=== PATIENT | male | born 1975 | race American Indian/Alaskan Native ===

== ENCOUNTER 2018-11-29 10:23 | Emergency (ER) | payer OTHER ==
[2018-11-29 10:32] VITALS: RESP 18; TEMP 98.6
--- NOTE | 2018-11-29 10:55 | ED PDOC ---
Arrival/HPI - General Chief Complaint: Palpitations Time Seen by Provider: 11/29/18 10:28 Historian: Patient - History of Present Illness Narrative History of Present Illness (Text): 11/29/18 10:55 43 year old male, whose past medical history includes diabetes, hypertension, A- fib s/p ablation s/p gastric sleeve, presents to the emergency department complaining of shortness of breath for the past 2 days. Patient reports shortn ess of breath and elevated heart rate on exertion, but symptoms resolve when he sits down. He reports he has not had any symptoms regarding his A-fib for the past year. He called Dr. Do who told patient to go to the ER for evaluation. Patient reports he was taken off Xarelto and is not currently on any blood thinners. Patient denies any fevers, chills, chest pain, abdominal pain, nausea, vomiting, diarrhea, back pain, neck pain, urinary symptoms, headache, dizziness, or any other complaint. Past Medical History - Provider Review Nursing Documentation Reviewed: Yes - Cardiac Hx Atrial Fibrillation: Yes Hx Hypertension: Yes - Endocrine/Metabolic Hx Diabetes Mellitus Type 2: Yes - Psychiatric Hx Substance Use: No Family/Social History - Physician Review Nursing Documentation Reviewed: Yes Family/Social History: No Known Family HX Smoking Status: Light Smoker < 10 Cigarettes Daily Hx Alcohol Use: Yes Frequency of alcohol use: Socially Hx Substance Use: No Allergies/Home Meds Allergies/Adverse Reactions: Allergies No Known Allergies Allergy (Verified 11/29/18 10:32) Home Medications: Home Meds Medication Instructions Recorded Confirmed Metoprolol Succinate [Toprol Xl] 25 mg PO DAILY 11/29/18 11/29/18 amLODIPine [Norvasc] 5 mg PO DAILY 11/29/18 11/29/18 metFORMIN [glucOPHAGE] 500 mg PO BID 11/29/18 11/29/18 Review of Systems - Physician Review All systems were reviewed & negative as marked: Yes - Review of Systems Constitutional: absent: Fevers Cardiovascular: absent: Chest Pain Physical Exam - Physical Exam Narrative Physical Exam (Text): Constitutional: No acute distress. Head: Normocephalic. Atraumatic. Eyes: PERRL. ENT: Moist mucous membranes. Neck: Supple. Cardiovascular: Regular rate. Chest: No tenderness. Respiratory: Clear to auscultation bilaterally. GI: Soft. Nontender. Nondistended. Back: No CVA tenderness. Musculoskeletal: No tenderness or swelling of extremities. Skin: No rash. Neurologic: Alert, no focal deficit. Vital Signs Reviewed: Yes Vital Signs Temp Pulse Resp BP Pulse Ox 11/29/18 10:28 98.6 F 90 18 162/123 H 97 Medical Decision Making ED Course and Treatment: 11/29/18 10:55 Impression: 43 year old male presents complaining dyspnea on exertion and elevated heart rate on exertion for the past 2 days. Plan: -- EKG -- Labs -- CXR -- Reassess and disposition Progress Notes: EKG shows NSR at [address] elevations. Interpreted by me. Chest X-ray Dictator : Kings Cameron MD Report Date : 11/29/2018 12:22:06 IMPRESSION: No active disease. 11/29/18 12:[address] Do who is aware and recommends patient be dis charged and to follow up as outpatient. Patient is aware and agrees with the plan to be discharged home. Patient is stable for discharge. - Lab Interpretations I have reviewed the lab results: Yes - RAD Interpretation Asset Protection Manager: Radiologist - EKG Interpretation Interpreted by ED Physician: Yes Type: 12 lead EKG - Scribe Statement The provider has reviewed the documentation as recorded by the Florentino Coyle Provider Scribe Attestation: All medical record entries made by the Scribe were at my direction and personally dictated by me. I have reviewed the chart and agree that the record accurately reflects my personal performance of the history, physical exam, medical decision making, and the department course for this patient. I have also personally directed, reviewed, and agree with the discharge instructions and disposition. Disposition/Present on Arrival - Present on Arrival Any Indicators Present on Arrival: No History of DVT/PE: No History of Uncontrolled Diabetes: No Urinary Catheter: No History of Decub. Ulcer: No History Surgical Site Infection Following: None - Disposition Have Diagnosis and Disposition been Completed?: Yes Diagnosis: Palpitations Disposition: HOME/ ROUTINE Disposition Time: 12:32 Patient Plan: Discharge Patient Problems: Current Active Problems Problem Status Onset Palpitations Acute Condition: GOOD Discharge Instructions (ExitCare): Palpitations Referrals: Joni Do MD [Staff Provider] - Follow up with primary Forms: [employer] ([employer]wana)
[2018-11-29 11:29] LABS: BASO # 0.02 K/mm3 (0.0-2.0); BASO % 0.3 % (0.0-3.0); EOS # 0.1 (0.0-0.7); EOS % 1.7 % (1.5-5.0); HEMOGLOBIN 16.6 g/dL (14.0-18.0); LYMPH # 2.1 (1.2-3.4); LYMPH % 28.5 % (22.0-35.0); MEAN CELL VOLUME 81.5 fl (80.0-105.0); MEAN CORPUSCULAR HEMOGLOBIN 27.9 pg (25.0-35.0); MEAN CORPUSCULAR HGB CONC 34.2 g/dl (31.0-37.0); MEAN PLATELET VOLUME 10.3 fl (7.0-11.0); MONO # 0.6 (0.1-0.6); MONO % 8.2 % (1.0-6.0); RBC 5.96 10^6/uL (3.5-6.1); RED CELL DISTRIBUTION WIDTH 14.3 % (11.5-14.5); WHITE BLOOD COUNT 7.2 10^3/uL (4.5-11.0)
[2018-11-29 11:32] LABS: ALB/GLOB RATIO 1.2 (1.1-1.8); ALBUMIN 4.6 g/dL (3.0-4.8); ALT/SGPT 32 U/L (7-56); AST/SGOT 27 U/L (17-59); BLOOD UREA NITROGEN 11 mg/dL (7-21); CALCIUM 9.2 mg/dL (8.4-10.5); GFR NON-AFRICAN AMERICAN > 60
[2018-11-29 11:33] LABS: INR 1.03; PARTIAL THROMBOPLASTIN TIME 31.1 Seconds (26.9-38.3); PROTHROMBIN TIME 11.6 SECONDS (9.4-12.5)
[2018-11-29 11:50] LABS: TROPONIN I < 0.01 ng/mL
--- NOTE | 2018-11-29 12:25 | RAD ---
Date of service: 11/29/2018 HISTORY: dyspnea, palpitations COMPARISON: No prior. TECHNIQUE: 1 view obtained. FINDINGS: LUNGS: No active pulmonary disease. PLEURA: No significant pleural effusion identified, no pneumothorax apparent. CARDIOVASCULAR: No aortic atherosclerotic calcification present. Normal cardiac size. No pulmonary vascular congestion. OSSEOUS STRUCTURES: No significant abnormalities. VISUALIZED UPPER ABDOMEN: Normal. OTHER FINDINGS: None. IMPRESSION: No active disease.
[2018-11-29 12:44] VITALS: BP 163/91; PULSE 79; O2SAT 99
--- NOTE | 2018-11-29 18:45 | CARD ---
APPROVED REPORT Date of service: 11/29/2018 EKG Measurement Heart [id number] <Conclusion> Normal sinus rhythm Incomplete right bundle branch block Left anterior fascicular block Abnormal ECG
== END 2018-11-29 12:49 | disposition home or self-care (01) ==
LOC: ED 10:23
DX: R00.2 Palpitations (principal); E11.9 Type 2 diabetes mellitus without complications; I10 Essential (primary) hypertension; F17.210 Nicotine dependence, cigarettes, uncomplicated; I48.91 Unspecified atrial fibrillation; Z98.84 Bariatric surgery status